=== PATIENT | male | born 1960 | race African-American/Black ===

== ENCOUNTER 2016-06-28 18:45 | Emergency (ER) | payer BC, SELFPAY ==
[2016-06-28] MEDS ORDERED: Nitroglycerin 0.4 MG TAB (25 Tab Bottle) ONE (18:48)
[2016-06-28] MEDS ORDERED: Fentanyl 100 MCG/2 ML VIAL ONE (18:58)
[2016-06-28] MEDS ORDERED: Ketorolac Tromethamine 30 MG/ML VIAL ONE (18:58)
[2016-06-28 19:20] LABS: #Basophils 0.1 thou/uL (0.0-0.2); #Eosinphils 0.1 thou/uL (0.0-0.7); #Lymphocytes 4.2 thou/uL (1.20-3.40); #Monocytes 0.8 thou/uL (0.11-0.59); #Neutrophils 4.9 thou/uL (1.40-6.50); %Basophils 0.9 % (0.0-1.0); %Eosinophils 1.3 % (0.0-10.0); %Lymphocytes 41.5 % (21.0-51.0); %Neutrophils 48.3 % (42.0-75.0); Hemoglobin 14.2 g/dL (14.0-18.0); Mean Corpuscular HGB CONC 34.8 g/dL (32.0-36.0); Mean Corpuscular Hemoglobin 31.2 pg (27.0-31.0); Mean Corpuscular Volume 89.4 fl (80.0-94.0); Mean Platelet Volume 8.8 fL (7.4-10.4); Platelet Count 232 thou/uL (130-400); Red Blood Cell (RBC) Count 4.57 mill/uL (4.70-6.10); White Blood Cell (WBC) Count 10.1 thou/uL (4.8-10.8)
[2016-06-28 19:34] LABS: ALT (SGPT) 26 U/L (0-55); AST (SGOT) 29 U/L (5-34); Albumin 4.2 g/dL (3.5-5.0); Alkaline Phosphatase 60 U/L (40-150); Anion Gap 13 mmol/L (10-20); BUN (Urea Nitrogen) 18 mg/dL (8.4-25.7); Bilirubin, Total 0.3 mg/dL (0.2-1.2); Calc. Creatinine Clearance 0 mL/min (70-130); Calcium 9.2 mg/dL (7.8-10.44); Carbon Dioxide 28 mmol/L (22-29); Chloride 104 mmol/L (98-107); Estimated GFR-MDRD 83; Globulin 3.1 g/dL (2.4-3.5); Glucose 100 mg/dL (70-105); Potassium 3.8 mmol/L (3.5-5.1); Protein, Total 7.3 g/dL (6.0-8.3); Sodium 141 mmol/L (136-145); Uric Acid 6.2 mg/dL (3.5-7.2)
[2016-06-28 19:39] LABS: CKMB 5.2 ng/mL (0-6.6); Troponin I Less than 0.010 ng/mL (< 0.028)
--- NOTE | 2016-06-28 20:37 | RAD ---
RIGHT ELBOW FIVE VIEWS 06/28/16 A small joint effusion is present. No fracture was seen. There is some bony spurring from the corono id process of the ulna and the posterior portion of the ulna near the olecranon. On lateral view, th ere appears to be a calcific density just anterior to the joint that could be a gouty tophus given t he patient's clinical history. IMPRESSION: Small joint effusion. Chronic changes otherwise. POS: [facility]
== END 2016-06-28 19:54 | disposition home or self-care (01) ==
LOC: BURERS 18:45
DX: M19.021 Primary osteoarthritis, right elbow (principal); M10.9 Gout, unspecified; I10 Essential (primary) hypertension; F32.9 Major depressive disorder, single episode, unspecified; F17.210 Nicotine dependence, cigarettes, uncomplicated
CPT/HCPCS: 80053; 82553; 84484; 84550; 85025; 96374; 96375; J1885; J3010

== ENCOUNTER 2017-03-31 12:46 | Emergency (ER) | payer OTHER, SELFPAY ==
[2017-03-31] MEDS ORDERED: Ondansetron HCl/PF 4 MG/2 ML Vial ONE (13:20)
[2017-03-31] MEDS ORDERED: Ketorolac Tromethamine 30 MG/ML VIAL ONE (13:20)
[2017-03-31 13:33] LABS: Anion Gap 16 mmol/L (10-20); BUN (Urea Nitrogen) 12 mg/dL (8.4-25.7); Calc. Creatinine Clearance 0 mL/min (70-130); Calcium 9.2 mg/dL (7.8-10.44); Carbon Dioxide 25 mmol/L (22-29); Chloride 102 mmol/L (98-107); Estimated GFR-MDRD Greater than 90; Glucose 117 mg/dL (70-105); Potassium 3.9 mmol/L (3.5-5.1); Sodium 139 mmol/L (136-145)
[2017-03-31 13:45] LABS: Hemoglobin 14.8 g/dL (14.0-18.0); Lymphocytes 37 % (21-51); MDiff Complete? YES; Mean Corpuscular HGB CONC 34.7 g/dL (32.0-36.0); Mean Corpuscular Hemoglobin 29.4 pg (27.0-31.0); Mean Corpuscular Volume 84.6 fl (80.0-94.0); Mean Platelet Volume 7.1 fL (7.4-10.4); Monocytes 26 % (0-10); Neutrophil 37 % (42-75); Platelet Count 164 thou/uL (130-400); RBC Distribution Width 11.8 % (11.5-14.5); Red Blood Cell (RBC) Count 5.02 mill/uL (4.70-6.10); White Blood Cell (WBC) Count 3.5 thou/uL (4.8-10.8)
== END 2017-03-31 14:23 | disposition home or self-care (01) ==
LOC: BURERS 12:46
DX: J11.1 Influenza due to unidentified influenza virus with other respiratory manifestations (principal); M10.9 Gout, unspecified; I10 Essential (primary) hypertension; F32.9 Major depressive disorder, single episode, unspecified; F17.210 Nicotine dependence, cigarettes, uncomplicated
CPT/HCPCS: 80048; 85025; 96361; 96374; 96375; J1885; J2405

== ENCOUNTER 2018-03-18 16:45 | Emergency (ER) | payer OTHER, SELFPAY ==
[2018-03-18 17:44] LABS: Bilirubin Negative (Negative); Blood, Urine Negative (Negative); Clarity Clear (Clear); Glucose, Urine (Dipstick) Negative (Negative); Leukocyte Negative (Negative); Nitrite Negative (Negative); Protein, Urine (Dipstick) Negative (Neg-Trace); Urobilinogen 0.2 mg/dL (0.2-1.0)
[2018-03-18] MEDS ORDERED: Ketorolac Tromethamine 60 MG/2 ML VIAL ONE (18:07)
--- NOTE | 2018-03-18 19:07 | RAD ---
THREE VIEWS OF THE LUMBOSACRAL SPINE 03/18/18 COMPARISON: None. HISTORY: Low back pain for three days. FINDINGS: Three views of the lumbosacral spine shows normal height and alignment of the vertebral bodies withou t fracture or subluxation. The L3-4 and L4-5 intervertebral disc are mildly narrowed. No posterior fa cet arthrosis is seen. IMPRESSION: Mild degenerative changes of the lower lumbosacral spine without acute osseous abnormality POS: [facility]
== END 2018-03-18 18:16 | disposition home or self-care (01) ==
LOC: BURERS 16:45
DX: M54.5 Low back pain (principal); I10 Essential (primary) hypertension; F32.9 Major depressive disorder, single episode, unspecified; M10.9 Gout, unspecified; F17.210 Nicotine dependence, cigarettes, uncomplicated; Z79.899 Other long term (current) drug therapy
CPT/HCPCS: 72100; 81003; 96372; J1885

== ENCOUNTER 2018-03-19 15:29 | Emergency (ER) | payer SELFPAY ==
[2018-03-19 16:09] LABS: #Basophils 0.1 thou/uL (0.0-0.2); #Eosinphils 0.1 thou/uL (0.0-0.7); #Lymphocytes 3.1 thou/uL (1.20-3.40); #Monocytes 0.6 thou/uL (0.11-0.59); #Neutrophils 4.4 thou/uL (1.40-6.50); %Basophils 1.1 % (0.0-1.0); %Eosinophils 1.6 % (0.0-10.0); %Neutrophils 53.2 % (42.0-75.0); Hemoglobin 15.6 g/dL (14.0-18.0); Mean Corpuscular HGB CONC 34.9 g/dL (32.0-36.0); Mean Corpuscular Hemoglobin 30.5 pg (27.0-31.0); Mean Corpuscular Volume 87.4 fL (78.0-98.0); Mean Platelet Volume 8.4 fL (7.4-10.4); Platelet Count 236 thou/uL (130-400); RBC Distribution Width 12.5 % (11.5-14.5); Red Blood Cell (RBC) Count 5.11 mill/uL (4.70-6.10); White Blood Cell (WBC) Count 8.3 thou/uL (4.8-10.8)
--- NOTE | 2018-03-19 16:22 | CT ---
CT HEAD NONCONTRAST: 03/19/18 HISTORY: Syncope. Fall. FINDINGS: No comparison. There is no evidence of acute intracranial hemorrhage or infarct. Ventricles appear normal in size, shape and position. There is no mass effect or shift of midline structures. IMPRESSION: No acute intracranial abnormalities are demonstrated. POS: [facility]
[2018-03-19 16:25] LABS: ALT (SGPT) 110 U/L (8-55); AST (SGOT) 133 U/L (5-34); Albumin 4.5 g/dL (3.5-5.0); Alkaline Phosphatase 55 U/L (40-150); Anion Gap 12 mmol/L (10-20); BUN (Urea Nitrogen) 22 mg/dL (8.4-25.7); Bilirubin, Total 0.5 mg/dL (0.2-1.2); Calc. Creatinine Clearance 0 mL/min (70-130); Calcium 10.1 mg/dL (7.8-10.44); Carbon Dioxide 28 mmol/L (22-29); Chloride 99 mmol/L (98-107); Estimated GFR-MDRD Greater than 90; Globulin 3.3 g/dL (2.4-3.5); Glucose 97 mg/dL (70-105); Potassium 4.4 mmol/L (3.5-5.1); Protein, Total 7.8 g/dL (6.0-8.3); Sodium 135 mmol/L (136-145)
[2018-03-19] MEDS ORDERED: Ketorolac Tromethamine 30 MG/ML VIAL ONE (16:57)
--- NOTE | 2018-03-19 16:58 | CT ---
CTA ABDOMINAL AORTOGRAM WITH 3D VOLUME RENDERING WITH CONTRAST: 03/19/18 HISTORY: Evaluation for abdominal aortic aneurysm. Abdominal pain. FINDINGS: The abdominal aorta is of normal caliber. There is mild scattered vascular calcification. There is a focal narrowing of the proximal celiac artery, with subsequent mild dilatation. The visualized proxi mal iliac arteries are of normal caliber. There is no retroperitoneal hematoma. No discrete dissectio n of the imaged aorta. The solid abdominal viscera and bowel are incompletely assessed on the basis o f arterial gram technique. No free air of the visualized abdomen. The imaged lung bases reveal no sig nificant pathology. There is disc degenerative disease noted at the lower lumbar spine. There is inci dental note of mild nodularity at the proximal aspect of the lateral limb, right adrenal gland. IMPRESSION: No evidence of aortic aneurysm, dissection, or retroperitoneal hematoma. Incidental note of a small nodule of the right adrenal gland. Recommend nonemergent followup with adr enal mass protocol CT exam to further evaluate. There is a focal narrowing of the proximal celiac artery, with subsequent mild dilatation. Code T POS: [facility]
== END 2018-03-19 17:05 | disposition home or self-care (01) ==
LOC: BURERS 15:29
DX: R55 Syncope and collapse (principal); M54.5 Low back pain; I10 Essential (primary) hypertension; M10.9 Gout, unspecified; F32.9 Major depressive disorder, single episode, unspecified; F17.210 Nicotine dependence, cigarettes, uncomplicated; Z79.899 Other long term (current) drug therapy
CPT/HCPCS: 70450; 71275; 80053; 84484; 85025; 93005; 94760; 96374; J1885

== ENCOUNTER 2018-07-20 16:22 | Emergency (ER) | payer SELFPAY ==
[~2018-07-20 16:22] MED LIST: Iopamidol 370 76% 125 ML VIAL FS ONE
[2018-07-20] MEDS ORDERED: Fentanyl 100 MCG/2 ML VIAL ONE (16:46)
[2018-07-20 17:05] LABS: #Basophils 0.2 thou/uL (0.0-0.2); #Lymphocytes 2.6 thou/uL (1.20-3.40); #Monocytes 0.9 thou/uL (0.11-0.59); #Neutrophils 13.4 thou/uL (1.40-6.50); %Basophils 1.3 % (0.0-1.0); %Lymphocytes 15.3 % (21.0-51.0); %Monocytes 5.3 % (0.0-10.0); %Neutrophils 78.1 % (42.0-75.0); Mean Corpuscular HGB CONC 34.7 g/dL (32.0-36.0); Mean Corpuscular Volume 86.6 fL (78.0-98.0); Mean Platelet Volume 7.7 fL (7.4-10.4); Platelet Count 232 thou/uL (130-400); RBC Distribution Width 12.7 % (11.5-14.5); Red Blood Cell (RBC) Count 4.65 mill/uL (4.70-6.10); White Blood Cell (WBC) Count 17.2 thou/uL (4.8-10.8)
[2018-07-20 17:12] LABS: Anion Gap 18 mmol/L (10-20); BUN (Urea Nitrogen) 32 mg/dL (8.4-25.7); Calc. Creatinine Clearance 0 mL/min (70-130); Calcium 9.8 mg/dL (7.8-10.44); Carbon Dioxide 19 mmol/L (22-29); Chloride 99 mmol/L (98-107); Estimated GFR-MDRD 40; Glucose 99 mg/dL (70-105); Potassium 5.4 mmol/L (3.5-5.1); Sodium 131 mmol/L (136-145)
[2018-07-20 17:32] LABS: Prothrombin Time 13.2 SEC (12.0-14.7)
[2018-07-20] MEDS ORDERED: Piperacillin/Tazobactam 4.5 GM VIAL ONE ×2 (18:02→23:57)
[2018-07-20] MEDS ORDERED: Morphine 4 MG/ML VIAL ONE ×3 (18:02→23:42)
[2018-07-20] MEDS ORDERED: Sodium Chloride 0.9% 0 ML ONE (18:02)
[2018-07-20 19:21] LABS: Bilirubin Negative (Negative); Blood, Urine Large (Negative); Clarity Cloudy (Clear); Glucose, Urine (Dipstick) Negative (Negative); Leukocyte Negative (Negative); Nitrite Negative (Negative); Protein, Urine (Dipstick) 100 mg/dL (Neg-Trace); Urobilinogen 0.2 mg/dL (0.2-1.0)
[2018-07-20 19:22] LABS: Bacteria/HPF 2+ HPF (None Seen); Squamous Epithelial 0-3 HPF (0-3); WBC/HPF 0-3 HPF (0-3)
[2018-07-20] MEDS ORDERED: Sodium Bicarb 50 MEQ/50 ML Abboject 8.4% SYRINGE ONE (19:24)
[2018-07-20 19:33] LABS: Amphetamine Not Detected (NotDetected); Barbiturates Screen Not Detected (NotDetected); Benzodiazepine Screen Not Detected (NotDetected); Cocaine Metabolite Screen Detected (NotDetected); Medtox Control Line Valid? VALID (VALID); Methadone Not Detected (NotDetected); Methamphetamine Not Detected (NotDetected); Opiate Screen Detected (NotDetected); Oxycodone Screen Not Detected (NotDetected); Phencyclidine (PCP) Not Detected (NotDetected); THC/Cannabinoid Screen Detected (NotDetected); Tricyclic Screen Not Detected (NotDetected)
--- NOTE | 2018-07-20 21:22 | CT ---
CT AORTIC DISSECTION: Date: 07-20-18 FINDINGS: Spiral CT of the chest and abdomen down through the bifurcation of the aorta was done for evaluation of the aorta itself to rule out dissection. Axial slices were acquired after giving a bolus of IV con trast. Coronal and sagittal and reconstructions were done afterwards. The aorta is moderately well opacified throughout. There was no sign of aortic aneurysm or dissection at the thoracic or abdominal level. There is moderately good opacification of the more proximal bran ches of the pulmonary arteries. No defects were seen to suggest clot. There was no sign of mediastina l mass or significant adenopathy. No pericardial effusion was seen. No coronary artery calcifications of concern were detected. There is some atelectasis in the lungs but no pulmonary nodules of concern were found. CT of the abdomen showed a normal appearing liver, spleen, pancreas, adrenal glands and kidneys. The celiac artery appears to narrow near its origin. This is very much in the vicinity of this patient's median arcuate ligament. If he were complaining of nausea symptoms with a deep breath, the finding wo uld take on more meaning. It is my understanding that he does not have such symptoms. The SMA and TOY fill well as do both renal arteries. Both iliac arteries, internal, and external all filled well. The visible bowel showed no dilation or inflammatory change around it. No free air or free fluid was seen. An incidental finding at L5-S1 suggests that there may be a tiny disc fragment in the left late ral recess at this level. IMPRESSION: 1. No evidence of aortic aneurysm or dissection. 2. Incidental finding of tiny gallstones in the gallbladder. 3. There appears to be some crimping or narrowing of the celiac artery at its origin such as one migh t see with median arcuate ligament syndrome. However, my understanding is that the patient's symptoms do not suggest such. 4. Degenerative disc disease of the lower lumbar spine. POS: HOME
[2018-07-21] MEDS ORDERED: Morphine 4 MG/ML VIAL ONE (03:29)
== END 2018-07-21 03:40 | disposition short-term general hospital (02) ==
LOC: BURERS 16:22
DX: A41.9 Sepsis, unspecified organism (principal); R65.20 Severe sepsis without septic shock; M62.82 Rhabdomyolysis; E87.5 Hyperkalemia; N17.9 Acute kidney failure, unspecified; I95.9 Hypotension, unspecified; M54.5 Low back pain; I10 Essential (primary) hypertension; M10.9 Gout, unspecified; F32.9 Major depressive disorder, single episode, unspecified; F17.210 Nicotine dependence, cigarettes, uncomplicated; Z79.899 Other long term (current) drug therapy
CPT/HCPCS: 36415; 71275; 80048; 80306; 81003; 81015; 82550; 83605; 83690; 85025; 85610; 85730; 87040; 87086; 93005; 96361; 96365; 96366; 96367; 96374; 96375; 96376; J2270; J2543; J3010; J3370; J3490; Q9967

== ENCOUNTER 2018-09-23 14:38 | Outpatient (CLI) | payer OTHER ==
--- NOTE | 2018-09-23 18:01 | RAD ---
LUMBAR SPINE THREE VIEWS: 09/23/18 Slight disc space narrowing is present at L4-L5 with some osteophytes seen anteriorly and posteriorly . Some facet arthritis is present here. No fracture was noted. The SI joints appear normal. The aorta is calcified. IMPRESSION: Degenerative changes at L4-L5. POS: [facility]
== END 2018-09-23 14:39 | disposition home or self-care (01) ==
LOC: BURRAD 14:38
PROVIDERS: ATTEND Family Medicine
DX: M54.5 Low back pain (principal); M47.816 Spondylosis without myelopathy or radiculopathy, lumbar region
CPT/HCPCS: 72100

== ENCOUNTER 2019-07-12 20:37 | Emergency (ER) | payer OTHER, SELFPAY | END 2019-07-12 21:30 | disposition home or self-care (01) | LOC: BURERS 20:37 | DX: K04.7 Periapical abscess without sinus (principal); K03.81 Cracked tooth; I10 Essential (primary) hypertension; F32.9 Major depressive disorder, single episode, unspecified; F17.210 Nicotine dependence, cigarettes, uncomplicated; Z79.899 Other long term (current) drug therapy | CPT/HCPCS: 99282 ==

== ENCOUNTER 2020-04-15 04:52 | Emergency (ER) | payer OTHER, SELFPAY ==
[2020-04-15 05:35] LABS: ALT (SGPT) 25 U/L (8-55); AST (SGOT) 30 U/L (5-34); Albumin 4.5 g/dL (3.5-5.0); Alkaline Phosphatase 58 U/L (40-110); Anion Gap 19 mmol/L (10-20); BUN (Urea Nitrogen) 14 mg/dL (8.4-25.7); Bilirubin, Total 0.7 mg/dL (0.2-1.2); Calc. Creatinine Clearance 0 mL/min (70-130); Calcium 9.7 mg/dL (7.8-10.44); Carbon Dioxide 21 mmol/L (22-29); Chloride 102 mmol/L (98-107); Glucose 98 mg/dL (70-105); Potassium 4.5 mmol/L (3.5-5.1); Protein, Total 7.5 g/dL (6.0-8.3); Sodium 137 mmol/L (136-145)
[2020-04-15] MEDS ORDERED: Nitroglycerin 0.4 MG TAB 1 EACH ONE (05:35)
[2020-04-15 05:40] LABS: Band 4 % (5-11); Eosinophils 1 % (0-10); Hemoglobin 15.1 g/dL (14.0-18.0); Lymphocytes 27 % (21-51); MDiff Complete? YES; Mean Corpuscular HGB CONC 34.4 g/dL (32.0-36.0); Mean Corpuscular Hemoglobin 29.8 pg (27.0-31.0); Mean Corpuscular Volume 86.7 fL (78.0-98.0); Mean Platelet Volume 8.6 fL (7.4-10.4); Monocytes 9 % (0-10); Neutrophil 58 % (42-75); Platelet Count 232 thou/uL (130-400); Platelet Morphology Comment Appears Adequate; RBC Morphology Normal; Red Blood Cell (RBC) Count 5.06 mill/uL (4.70-6.10); White Blood Cell (WBC) Count 8.3 thou/uL (4.8-10.8)
[2020-04-15] MEDS ORDERED: Morphine 4 MG/ML VIAL ONE (05:47)
--- NOTE | 2020-04-15 10:05 | RAD ---
PORTABLE CHEST: Date: 04/15/2020 An AP portable film at 0528 hours is compared with the 07/24/2018 study. The cardiac size is unchanged. There is no vascular congestion, edema, or pleural effusion. No acute pulmonary infiltrate was seen. The mediastinum appears normal. IMPRESSION: Stable exam showing no acute findings. POS: HOME
== END 2020-04-15 06:30 | disposition left against medical advice (07) ==
LOC: BURERS 04:52
DX: R07.9 Chest pain, unspecified (principal); I10 Essential (primary) hypertension; M10.9 Gout, unspecified; F17.220 Nicotine dependence, chewing tobacco, uncomplicated; Z79.82 Long term (current) use of aspirin; Z79.899 Other long term (current) drug therapy
CPT/HCPCS: 71045; 80053; 84484; 85025; 93005; 96374; J2270

== ENCOUNTER 2020-11-22 22:29 | Emergency (ER) | payer OTHER ==
[2020-11-22] MEDS ORDERED: Ketorolac Tromethamine 30 MG/ML VIAL ONE (23:13)
[2020-11-22] MEDS ORDERED: HYDROcodone/Acetaminophen 5/325 mg Tablet ONE (23:13)
== END 2020-11-22 23:23 | disposition home or self-care (01) ==
LOC: BURERS 22:29
DX: R07.81 Pleurodynia (principal); I10 Essential (primary) hypertension; M10.9 Gout, unspecified; F17.220 Nicotine dependence, chewing tobacco, uncomplicated; F17.210 Nicotine dependence, cigarettes, uncomplicated
CPT/HCPCS: 71045; 96372; J1885

== ENCOUNTER 2021-01-23 17:00 | Outpatient (CLI) | payer OTHER | END 2021-01-23 17:01 | disposition home or self-care (01) | LOC: BURRAD 17:00 | PROVIDERS: ATTEND Nurse Practitioner Family | DX: S99.922A Unspecified injury of left foot, initial encounter (principal); W20.8XXA Other cause of strike by thrown, projected or falling object, initial encounter ==

== ENCOUNTER 2024-10-30 17:49 | Observation (INO) | payer OTHER ==
[2024-10-30 18:27] LABS: ALT (SGPT) 26 U/L (Less than 45); AST (SGOT) 34 U/L (11-34); Albumin 4.5 g/dL (3.1-4.5); Alkaline Phosphatase 55 U/L (40-110); Anion Gap 19 mmol/L (10-20); BUN (Urea Nitrogen) 19 mg/dL (8.4-25.7); Bilirubin, Total 0.5 mg/dL (0.3-1.2); CK (CPK) 422 U/L (30-200); Calc. Creatinine Clearance 0 mL/min (70-130); Calcium 10.5 mg/dL (7.8-10.44); Carbon Dioxide 20 mmol/L (23-31); Chloride 104 mmol/L (98-107); Globulin 3.7 g/dL (2.4-3.5); Glucose 117 mg/dL (80-115); Potassium 4.4 mmol/L (3.5-5.1); Sodium 139 mmol/L (136-145)
[2024-10-30 18:33] LABS: #Basophils 0.1 thou/uL (0.0-0.2); #Eosinophils 0.1 thou/uL (0.0-0.7); #Lymphocytes 3.1 thou/uL (1.20-3.40); #Monocytes 0.6 thou/uL (0.11-0.59); #Neutrophils 5.1 thou/uL (1.40-6.50); %Basophils 1.1 % (0.0-1.0); %Eosinophils 0.9 % (0.0-10.0); %Lymphocytes 34.4 % (21.0-51.0); %Monocytes 6.7 % (0.0-10.0); %Neutrophils 56.9 % (42.0-75.0); Hematocrit 39.7 % (42.0-52.0); Hemoglobin 14.7 g/dL (14.0-18.0); Mean Corpuscular Hemoglobin 30.1 pg (27.0-31.0); Mean Corpuscular Volume 81.5 fl (78.0-98.0); Platelet Count 275 10x3/uL (130-400); Red Blood Cell (RBC) Count 4.87 mill/uL (4.70-6.10); White Blood Cell (WBC) Count 8.9 10x3/uL (4.8-10.8)
[2024-10-30 18:47] LABS: Troponin I Less than 0.010 ng/mL (< 0.028)
[2024-10-30 22:47] VITALS: BMI 43.9
[2024-10-30] MEDS ORDERED: Ondansetron PF 4 MG/2 ML Vial IVP PRN (23:45)
[2024-10-31 05:14] LABS: #Basophils 0.1 thou/uL (0.0-0.2); #Eosinophils 0.1 thou/uL (0.0-0.7); #Lymphocytes 3.0 thou/uL (1.20-3.40); #Monocytes 0.7 thou/uL (0.11-0.59); #Neutrophils 4.7 thou/uL (1.40-6.50); %Basophils 1.0 % (0.0-1.0); %Eosinophils 1.7 % (0.0-10.0); %Lymphocytes 34.8 % (21.0-51.0); %Monocytes 7.7 % (0.0-10.0); %Neutrophils 54.8 % (42.0-75.0); Hematocrit 32.2 % (42.0-52.0); Hemoglobin 12.1 g/dL (14.0-18.0); Mean Corpuscular Hemoglobin 30.9 pg (27.0-31.0); Mean Corpuscular Volume 82.1 fl (78.0-98.0); Platelet Count 208 10x3/uL (130-400); Red Blood Cell (RBC) Count 3.92 mill/uL (4.70-6.10); White Blood Cell (WBC) Count 8.6 10x3/uL (4.8-10.8)
[2024-10-31 05:28] LABS: Calcium 8.9 mg/dL (7.8-10.44)
[2024-10-31 05:29] LABS: ALT (SGPT) 20 U/L (Less than 45); AST (SGOT) 24 U/L (11-34); Albumin 3.4 g/dL (3.1-4.5); Alkaline Phosphatase 48 U/L (40-110); Anion Gap 13 mmol/L (10-20); BUN (Urea Nitrogen) 18 mg/dL (8.4-25.7); Bilirubin, Total 0.3 mg/dL (0.3-1.2); Calc. Creatinine Clearance 115 mL/min (70-130); Carbon Dioxide 24 mmol/L (23-31); Chloride 107 mmol/L (98-107); Globulin 2.7 g/dL (2.4-3.5); Glucose 153 mg/dL (80-115); Potassium 3.9 mmol/L (3.5-5.1); Sodium 140 mmol/L (136-145)
[2024-10-31] MEDS: Acetaminophen 325 MG TAB PO PRN (07:05)
[2024-10-31] MEDS: PNEUMOC 20-VAL CONJ-DIP CRM/PF 0.5 ML SYRINGE IM ONE (08:16)
[2024-10-31 09:43] VITALS: BP 121/71; TEMP 98.7
== END 2024-10-31 09:30 | disposition home or self-care (01) ==
LOC: BURERS 17:49 → BURMED 21:35
PROVIDERS: ADMIT Family Medicine; ATTEND Nurse Practitioner
DX: E86.0 Dehydration (principal); N17.9 Acute kidney failure, unspecified; I10 Essential (primary) hypertension; M10.9 Gout, unspecified; Z79.899 Other long term (current) drug therapy
CPT/HCPCS: 36415; 71045; 80053; 82550; 83605; 84484; 85025; 93005; 96360; 96361; G0378; J7120